=== PATIENT | female | born 1990 | race American Indian/Alaskan Native ===

== ENCOUNTER 2018-06-01 15:46 | Emergency (ER) | payer MEDICAID ==
[2018-06-01 16:13] VITALS: BP 166/80
--- NOTE | 2018-06-01 17:10 | Emergency Department Report ---
Chief Complaint: Abdominal Pain Stated Complaint: STOMACH AND SIDE PAIN Time Seen by Provider: 06/01/18 17:05 - HPI History of Present Illness: 28-year-old female presents to the emergency Department with complaints of abdominal pain is worst in the left side of the abdomen but sometimes radiates towards the epigastric or right upper quadrant region. It is been going on for about 4 days and at first she had some associated nausea and vomiting. She is not taking anything for her symptoms represent dig. She denies any past medical history. - ROS Review of Systems: Positive for abdominal pain Negative for fever, constipation, diarrhea - Exam Vital Signs: Vital Signs 06/01/18 16:09 Temperature 98.4 F Pulse Rate 85 Respiratory 16 Rate Blood Pressure 166/80 O2 Sat by Pulse 100 Oximetry Physical Exam: There is some reproducible left-sided abdominal tenderness to palpation. No guarding. Heart and lungs sounds are normal to auscultation. MSE screening note: Focused history and physical exam performed. Due to findings the following was ordered: I have ordered a CBC, CMP, urinalysis, test and lipase. She will have a 2 view abdominal x-ray ED Disposition for MSE Condition: Stable Instructions: Abdominal Pain (ED)
[2018-06-01 17:56] LABS: Bilirubin,Urine NEG (Negative); Blood,Urine SM (Negative); Color,Urine Yellow (Yellow); Mucus,Urine FEW /HPF; Protein,Urine <15 mg/dL mg/dL (Negative); Urobilinogen,Urine < 2.0 mg/dL (<2.0)
[2018-06-01 19:18] LABS: Hematocrit 41.6 % (30.3-42.9); Hemoglobin 13.5 gm/dl (10.1-14.3); Mean Corpuscular HGB Conc 33 % (30-34); Mean Corpuscular Hemoglobin 31 pg (28-32); Mean Corpuscular Volume 97 fl (79-97); Platelet Count 305 K/mm3 (140-440); Red Cell Distribution Width 13.6 % (13.2-15.2)
[2018-06-01 19:38] LABS: Alanine Aminotransferase 12 units/L (7-56); Albumin 4.2 g/dL (3.9-5); BUN/Creatinine Ratio 18; Blood Urea Nitrogen 11 mg/dL (7-17); Hemolysis Index 13; Lipase 25 units/L (13-60)
[2018-06-01 19:50] LABS: Eosinophils % (Manual) 0 % (0.0-4.3); Total Cells Counted 100
[2018-06-01 19:51] LABS: Large Platelets 1+; Platelet Estimate Consistent w Auto; RBC Morphology Normal
[2018-06-01] MEDS ORDERED: NACL 0.9% 1000 ML 1,000 ML IV ONE (21:12)
[2018-06-01] MEDS ORDERED: ZOFRAN IV ONE (21:14)
[2018-06-01] MEDS ORDERED: TORADOL IV ONE (21:14)
--- NOTE | 2018-06-01 21:48 | Emergency Department Report ---
ED Abdominal Pain HPI - General Chief Complaint: Abdominal Pain Stated Complaint: STOMACH AND SIDE PAIN Time Seen by Provider: 06/01/18 17:05 Source: patient Mode of arrival: Ambulatory Limitations: No Limitations - History of Present Illness Initial Comments: This is a 28-year-old female nontoxic, well nourished in appearance, no acute signs of distress presents to the ED with c/o of nausea and vomiting and abdominal pain 4 days. Patient describes vomiting as food content and yellow gastric acid. Patient describes abdominal pain as cramping and aching with level of 3/10 in the left and right abdominal areas. Patient denies chest pain , short of breath, fever, chills, headache, stiff neck, numbness or tingling. Patient denies any diarrhea or constipation. Patient denies any vaginal bleeding or discharge. Patient denies any recent travels. Patient stated allergies to PCN. Patient stated PMH includes arthritis and hypertension. MD Complaint: abdominal pain -: days(s) (4) Location: LUQ, RUQ Radiation: none Migration to: no migration Severity: mild Severity scale (0 -10): 3 Quality: cramping, aching Consistency: constant Improves With: nothing Worsens With: nothing Associated Symptoms: nausea, vomiting. denies: diarrhea, fever, chills, constipation, dysuria, hematemesis, hematochezia, melena, hematuria, anorexia, syncope - Related Data LMP Date: 05/08/18 Previous Rx's Medication Instructions Recorded Last Taken Type Gentamicin 0.3% Ophth Soln 2 drops OD QID #5 ml 07/25/14 Unknown Rx HYDROcodone/APAP 5-325 [[place] 1 each PO Q6HR PRN #14 tablet 07/25/14 Unknown Rx 5/325] Homatropine HBr [Isopto 2 drop OD TID #3 day 07/25/14 Unknown Rx Homatropine 5% eye drop] Vits96/Iron Fum/Folic 1 each PO QDAY #30 tablet 09/05/14 Unknown Rx [ Tablet] Promethazine [Phenergan] 25 mg PO Q6H PRN #20 tablet 09/05/14 Unknown Rx Ibuprofen [Motrin] 600 mg PO Q8H PRN #30 tablet 06/01/18 Unknown Rx Ondansetron [Zofran Odt] 4 mg PO Q8HR PRN #20 tab.rapdis 06/01/18 Unknown Rx Allergies Allergy/AdvReac Type Severity Reaction Status Date / Time No Known Allergies Allergy Unverified 07/24/14 22:29 ED Review of Systems ROS: Stated complaint: STOMACH AND SIDE PAIN Other details as noted in HPI Constitutional: denies: chills, fever Eyes: denies: eye pain, eye discharge, vision change ENT: denies: ear pain, throat pain Respiratory: denies: cough, shortness of breath, wheezing Cardiovascular: denies: chest pain, palpitations Endocrine: no symptoms reported Gastrointestinal: abdominal pain, nausea, vomiting. denies: diarrhea Genitourinary: denies: urgency, dysuria, discharge Musculoskeletal: denies: back pain, joint swelling, arthralgia Skin: denies: rash, lesions Neurological: denies: headache, weakness, paresthesias Psychiatric: denies: anxiety, depression Hematological/Lymphatic: denies: easy bleeding, easy bruising ED Past Medical Hx - Past Medical History Previous Medical History?: No - Surgical History Past Surgical History?: Yes Additional Surgical History: X 2 - Social History Smoking Status: Never Smoker Substance Use Type: Alcohol - Medications Home Medications: Home Medications Medication Instructions Recorded Confirmed Last Taken Type Gentamicin 0.3% Ophth Soln 2 drops OD QID #5 ml 07/25/14 Unknown Rx HYDROcodone/APAP 5-325 [[place] 1 each PO Q6HR PRN #14 tablet 07/25/14 Unknown Rx 5/325] Homatropine HBr [Isopto 2 drop OD TID #3 day 07/25/14 Unknown Rx Homatropine 5% eye drop] Vits96/Iron Fum/Folic 1 each PO QDAY #30 tablet 09/05/14 Unknown Rx [ Tablet] Promethazine [Phenergan] 25 mg PO Q6H PRN #20 tablet 09/05/14 Unknown Rx Ibuprofen [Motrin] 600 mg PO Q8H PRN #30 tablet 06/01/18 Unknown Rx Ondansetron [Zofran Odt] 4 mg PO Q8HR PRN #20 tab.rapdis 06/01/18 Unknown Rx ED Physical Exam - General Limitations: No Limitations General appearance: alert, in no apparent distress - Head Head exam: Present: atraumatic, normocephalic - Eye Eye exam: Present: normal appearance Pupils: Present: normal accommodation - ENT ENT exam: Present: normal exam, mucous membranes moist - Neck Neck exam: Present: normal inspection, full ROM. Absent: tenderness, meningismus, lymphadenopathy - Respiratory Respiratory exam: Present: normal lung sounds bilaterally. Absent: respiratory distress, wheezes, rales, rhonchi, stridor, chest wall tenderness, accessory muscle use, decreased breath sounds, prolonged expiratory - Cardiovascular Cardiovascular Exam: Present: regular rate, normal rhythm, normal heart sounds. Absent: bradycardia, tachycardia, irregular rhythm, systolic murmur, diastolic murmur, rubs, gallop - GI/Abdominal GI/Abdominal exam: Present: soft, tenderness (RUQ and LUQ), normal bowel sounds. Absent: distended, guarding, rebound, rigid, diminished bowel sounds - Expanded GI/Abdominal Exam Expanded GI/Abdominal exam: Absent: psoas sign, obturator sign, heel tap sign, Patterson's sign, Rovsing's sign, tenderness at [place]'s Point, ascites - Rectal Rectal exam: Present: deferred - Extremities Exam Extremities exam: Present: normal inspection, full ROM, normal capillary refill. Absent: tenderness - Back Exam Back exam: Present: normal inspection, full ROM. Absent: tenderness, CVA tenderness (R), CVA tenderness (L), muscle spasm, paraspinal tenderness, vertebral tenderness, rash noted - Neurological Exam Neurological exam: Present: alert, oriented X3, normal gait - Psychiatric Psychiatric exam: Present: normal affect, normal mood - Skin Skin exam: Present: warm, dry, intact, normal color. Absent: rash ED Course Vital Signs 06/01/18 16:09 Temperature 98.4 F Pulse Rate 85 Respiratory 16 Rate Blood Pressure 166/80 O2 Sat by Pulse 100 Oximetry - Reevaluation(s) Reevaluation #1: 06/01/18 21:46 Patient is speaking in full sentences with no signs of distress noted. - Consultations Consultation #1: 06/01/18 21:46 Patient has been consulted with Dr. Tan about patient history, physical exam, and labs and examined and screened patient and agrees to ED plan of care. CT scan pending. ED Medical Decision Making - Lab Data Result diagrams: 06/01/18 19:03 06/01/18 19:03 - Medical Decision Making This is a 28-year-old female that presents with abdominal pain. Patient is stable and was examined by me and Dr. Tan. There is slight abdominal tenderness. Negative signs of symptoms of appendicitis. Labs obtained. UA obtained. Xray and CT with contrast of abdomen obtained and dictated by the radiologist. Patient is notified of the report with no questions noted by the patient. Vital signs are stable prior to discharge. Patient received Toradol and Zofran IV and 1L of normal saline in the ED which patient stated symptoms has resolved and subsided. A by mouth challenge has been obtained and patient tolerated well with no nausea vomiting. Patient was notified of strict precautions of appendicitis symptoms and to return to the ED if symptoms occurs as soon as possible. Patient was also instructed to Follow-up with a primary care doctor in 3-5 days or if symptoms worsen and continue return to emergency room as soon as possible. At time of discharge, the patient does not seem toxic or ill in appearance. No acute signs of distress noted. Patient agrees to discharge treatment plan of care. No further questions noted by the patient. Critical care attestation.: If time is entered above; I have spent that time in minutes in the direct care of this critically ill patient, excluding procedure time. ED Disposition Clinical Impression: Nausea & vomiting Qualifiers: Vomiting type: unspecified Vomiting Intractability: non-intractable Qualified Code(s): R11.2 - Nausea with vomiting, unspecified Abdominal pain Qualifiers: Abdominal location: upper abdomen, unspecified Qualified Code(s): R10.10 - Upper abdominal pain, unspecified Disposition: DC-01 TO HOME OR SELFCARE Is pt being admited?: No Does the pt Need Aspirin: No Condition: Stable Instructions: Abdominal Pain (ED), Acute Nausea and Vomiting (ED) Additional Instructions: Follow-up with a primary care doctor in 3-5 days or if symptoms worsen and continue return to emergency room as soon as possible. Prescriptions: Ibuprofen [Motrin] 600 mg PO Q8H PRN #30 tablet PRN Reason: Pain Ondansetron [Zofran Odt] 4 mg PO Q8HR PRN #20 tab.rapdis PRN Reason: Nausea Referrals: AL CAMARILLO MD [Primary Care Provider] - 3-5 Days PRIMARY CARE, [Referring] - 3-5 Days KAVIN JOLLY MD [Staff Physician] - 3-5 Days [facility] [Outside] - 3-5 Days [facility] [Outside] - 3-5 Days Forms: Work/School Release Form(ED)
--- NOTE | 2018-06-01 22:48 | Cat Scan Report ---
FINAL REPORT EXAM: CT ABDOMEN PELVIS W CON HISTORY: abd pain TECHNIQUE: CT abdomen and pelvis with intravenous contrast PRIORS: None. FINDINGS: No acute abnormality identified in the lung bases. No focal abnormality identified within the liver parenchyma. The spleen demonstrates normal size and attenuation. No pancreatic abnormalities seen. The kidneys demonstrate symmetric contrast enhancement. No evidence of hydronephrosis. The adrenal glands are unremarkable Abdominal aorta is normal in caliber. No pathologically enlarged lymph nodes are identified. No signs of free fluid or free air No evidence of small bowel dilatation. Colon is nondistended. No pericolonic inflammatory change. Noted is an IUD centrally within the uterus. Urinary bladder is unremarkable. IMPRESSION: Negative. No acute abnormalities seen
--- NOTE | 2018-06-02 16:23 | XRay Report ---
FINAL REPORT EXAM: XR ABDOMEN 2V HISTORY: Abd pain TECHNIQUE: Frontal views of the abdomen and pelvis in the supine and upright positions Comparison: None FINDINGS: The bowel gas pattern is nonspecific with air in mildly distended loops of small bowel and colon with some air-fluid levels on the upright view. There is no evidence of pneumoperitoneum nor organomegaly. An intrauterine device is projected in the region of the uterus. The bony structures are notable for mild dextrocurvature of the lumbar spine on the upright view. The cardiac silhouette appears to be enlarged. This may be exaggerated by technique. IMPRESSION: 1. Nonspecific bowel gas pattern with air-fluid levels on the upright view. If there is a clinical suspicion of an acute intra-abdominal process, CT abdomen and pelvis may be helpful. 2. Dextrocurvature lumbar spine on the upright view. 3. The cardiac silhouette appears to be enlarged. This may be exaggerated by technique.
== END 2018-06-01 23:57 | disposition home or self-care (01) ==
LOC: ED 15:46
DX: R10.11 Right upper quadrant pain (principal); R10.12 Left upper quadrant pain; R11.2 Nausea with vomiting, unspecified
CPT/HCPCS: 36415; 74019; 74177; 80053; 81001; 83690; 84703; 85007; 85025; 96361; 96365; 96375; 99284; J1885; J2405; J7030; Q9967; 96374

== ENCOUNTER 2018-08-05 23:57 | Emergency (ER) | payer MEDICAID ==
[2018-08-06 00:38] VITALS: BP 130/82
--- NOTE | 2018-08-06 03:33 | Emergency Department Report ---
- General Chief complaint: Skin Rash Stated complaint: SPIDER BITE Time Seen by Provider: 08/06/18 03:28 Source: patient Mode of arrival: Ambulatory Limitations: No Limitations - History of Present Illness Initial comments: 28-year-old [place] female comes to the emergency room reporting several red spots in the left arm and left lower extremity. Patient states that there are spider bites but did not see any spiders. Patient reports that the bumps itch and burn at the same time. Patient has been taking Benadryl. complaint: insect bite/sting -: This morning Location: LUE, LLE Quality: burning, other Consistency: constant (pleuritic) Improves with: none Worsens with: none Associated symptoms: denies other symptoms Treatments Prior to Arrival: none - Related Data Previous Rx's Medication Instructions Recorded Last Taken Type Gentamicin 0.3% Ophth Soln 2 drops OD QID #5 ml 07/25/14 Unknown Rx HYDROcodone/APAP 5-325 [[place] 1 each PO Q6HR PRN #14 tablet 07/25/14 Unknown Rx 5/325] Homatropine HBr [Isopto 2 drop OD TID #3 day 07/25/14 Unknown Rx Homatropine 5% eye drop] Vits96/Iron Fum/Folic 1 each PO QDAY #30 tablet 09/05/14 Unknown Rx [ Tablet] Promethazine [Phenergan] 25 mg PO Q6H PRN #20 tablet 09/05/14 Unknown Rx Ibuprofen [Motrin] 600 mg PO Q8H PRN #30 tablet 06/01/18 Unknown Rx Ondansetron [Zofran Odt] 4 mg PO Q8HR PRN #20 tab.rapdis 06/01/18 Unknown Rx Triamcinolone 0.1% [Kenalog 0.1% 1 applic TP TID #1 tube 08/06/18 Unknown Rx CREAM] Allergies Allergy/AdvReac Type Severity Reaction Status Date / Time No Known Allergies Allergy Unverified 07/24/14 22:29 Abscess Boil HPI - HPI Chief Complaint: Skin Rash Stated Complaint: SPIDER BITE Time Seen by Provider: 08/06/18 03:28 Home Medications: Previous Rx's Medication Instructions Recorded Last Taken Type Gentamicin 0.3% Ophth Soln 2 drops OD QID #5 ml 07/25/14 Unknown Rx HYDROcodone/APAP 5-325 [[place] 1 each PO Q6HR PRN #14 tablet 07/25/14 Unknown Rx 5/325] Homatropine HBr [Isopto 2 drop OD TID #3 day 07/25/14 Unknown Rx Homatropine 5% eye drop] Vits96/Iron Fum/Folic 1 each PO QDAY #30 tablet 09/05/14 Unknown Rx [ Tablet] Promethazine [Phenergan] 25 mg PO Q6H PRN #20 tablet 09/05/14 Unknown Rx Ibuprofen [Motrin] 600 mg PO Q8H PRN #30 tablet 06/01/18 Unknown Rx Ondansetron [Zofran Odt] 4 mg PO Q8HR PRN #20 tab.rapdis 06/01/18 Unknown Rx Triamcinolone 0.1% [Kenalog 0.1% 1 applic TP TID #1 tube 08/06/18 Unknown Rx CREAM] Allergies/Adverse Reactions: Allergies Allergy/AdvReac Type Severity Reaction Status Date / Time No Known Allergies Allergy Unverified 07/24/14 22:29 ED Review of Systems ROS: Stated complaint: SPIDER BITE Other details as noted in HPI Comment: All other systems reviewed and negative ED Past Medical Hx - Past Medical History Previous Medical History?: No - Surgical History Past Surgical History?: Yes Additional Surgical History: X 2 - Social History Smoking Status: Current Every Day Smoker Substance Use Type: Alcohol - Medications Home Medications: Home Medications Medication Instructions Recorded Confirmed Last Taken Type Gentamicin 0.3% Ophth Soln 2 drops OD QID #5 ml 07/25/14 Unknown Rx HYDROcodone/APAP 5-325 [[place] 1 each PO Q6HR PRN #14 tablet 07/25/14 Unknown Rx 5/325] Homatropine HBr [Isopto 2 drop OD TID #3 day 07/25/14 Unknown Rx Homatropine 5% eye drop] Vits96/Iron Fum/Folic 1 each PO QDAY #30 tablet 09/05/14 Unknown Rx [ Tablet] Promethazine [Phenergan] 25 mg PO Q6H PRN #20 tablet 09/05/14 Unknown Rx Ibuprofen [Motrin] 600 mg PO Q8H PRN #30 tablet 06/01/18 Unknown Rx Ondansetron [Zofran Odt] 4 mg PO Q8HR PRN #20 tab.rapdis 06/01/18 Unknown Rx Triamcinolone 0.1% [Kenalog 0.1% 1 applic TP TID #1 tube 08/06/18 Unknown Rx CREAM] ED Physical Exam - General Limitations: No Limitations General appearance: alert, in no apparent distress - Eye Eye exam: Present: EOMI - ENT ENT exam: Present: mucous membranes moist - Neurological Exam Neurological exam: Present: alert, oriented X3 - Psychiatric Psychiatric exam: Present: normal affect, normal mood - Expanded Skin Exam Expanded Type of lesion: Present: bite/sting Distribution of rash: LUE, LLE Description of rash: Present: size (time size) ED Course Vital Signs 08/06/18 00:26 Temperature 98.6 F Pulse Rate 94 H Respiratory 14 Rate Blood Pressure 130/82 O2 Sat by Pulse 100 Oximetry ED Medical Decision Making - Medical Decision Making Patient has been evaluated by this provider fast track. Patient appears to have some type of insect bite Disposition proximal cream and encouraged to continue with the Benadryl as needed Critical care attestation.: If time is entered above; I have spent that time in minutes in the direct care of this critically ill patient, excluding procedure time. ED Disposition Clinical Impression: Insect bite Qualifiers: Encounter type: initial encounter Qualified Code(s): W57.XXXA - Bitten or stung by nonvenomous insect and other nonvenomous arthropods, initial encounter Disposition: DC-01 TO HOME OR SELFCARE Is pt being admited?: No Does the pt Need Aspirin: No Condition: Stable Instructions: Insect Bite or Sting (ED) Additional Instructions: Please continue with Benadryl and apply topical cream steroid to the red lesions. Prescriptions: Triamcinolone 0.1% [Kenalog 0.1% CREAM] 1 applic TP TID #1 tube Referrals: PRIMARY CARE, [Primary Care Provider] - 3-5 Days Forms: Work/School Release Form(ED)
== END 2018-08-06 03:40 | disposition home or self-care (01) ==
LOC: ED 23:57
DX: S40.862A Insect bite (nonvenomous) of left upper arm, initial encounter (principal); S80.862A Insect bite (nonvenomous), left lower leg, initial encounter; F17.200 Nicotine dependence, unspecified, uncomplicated; W57.XXXA Bitten or stung by nonvenomous insect and other nonvenomous arthropods, initial encounter; Y93.89 Activity, other specified; Y92.89 Other specified places as the place of occurrence of the external cause; Y99.8 Other external cause status
CPT/HCPCS: 99282

== ENCOUNTER 2019-12-24 21:53 | Emergency (ER) | payer MEDICAID ==
[2019-12-24 23:30] VITALS: BP 158/100
[2019-12-25 00:11] LABS: HCG Qualitative,Urine Negative (Negative)
--- NOTE | 2019-12-25 00:33 | Cat Scan Report ---
CT head/brain wo con INDICATION / CLINICAL INFORMATION: 29 years Female; neck pain and headache. TECHNIQUE: Routine CT head without contrast. All CT scans at this location are performed using CT dos e reduction for ALARA by means of automated exposure control. COMPARISON: None. FINDINGS: BRAIN / INTRACRANIAL CONTENTS: No acute hemorrhage, mass effect, midline shift, hydrocephalus, or acu te, large territorial infarct. No chronic infarct or atrophy appreciated. No significant white matter abnormality. CRANIOCERVICAL JUNCTION: No significant abnormality. ORBITS: No significant abnormality of visualized orbits. SINUSES / MASTOIDS: Mucosal thickening suggested in the right maxillary region. ADDITIONAL FINDINGS: None. IMPRESSION: 1. No focal mass, hemorrhage, hydrocephalus, or acute, large territorial infarct. Signer Name: Florentin Johnson MD, III Signed: 12/25/2019 12:29 AM Workstation Name: [id number]
--- NOTE | 2019-12-25 00:46 | Cat Scan Report ---
CT cervical spine wo con INDICATION: neck pain and headache. TECHNIQUE: All CT scans at this location are performed using the following dose modulation technique: Automated exposure control. Helical slices were obtained through the cervical spine. Coronal and sagittal refor matted images were obtained. COMPARISON: None available. FINDINGS: Cervical spine is in normal alignment. Disc space heights are maintained. No fracture or subluxation is seen. Prevertebral soft tissues are unremarkable. No definite disc bulge or protrusion is seen. No focal lytic or sclerotic lesions are seen. IMPRESSION: 1. Cervical spine is in normal alignment. Disc space heights are maintained. No fracture is seen. Signer Name: Fabio Hogan MD Signed: 12/25/2019 12:42 AM Workstation Name: [id number]
[2019-12-25] MEDS ORDERED: IBUPROFEN 600 MG TAB PO ONE (01:35)
--- NOTE | 2019-12-25 01:39 | Emergency Department Report ---
ED Neck Pain/Injury HPI - General Chief Complaint: Neck Pain/Injury Stated Complaint: BACK/NECK PAIN Time Seen by Provider: 12/25/19 01:34 Mode of arrival: Ambulatory Limitations: No Limitations - History of Present Illness Initial Comments: 29-year-old -[place] female presents to the emergency room for upper back and neck pain for several days. Patient reports it hurts to turn her neck. Patient states she is noticed some swelling to the back of her neck with tenderness. Patient states after having the pain she had fallen today. Patient is taken nothing for her pain. Patient is noted to have elevated blood pressure and reports she has hypertension. Patient ports she does not take her amlodipine as she does not like the way it makes her feel. MD Complaint: neck pain, upper back pain Onset/Timin -: week(s) Radiation: upper back Severity: severe Severity scale (0 -10): 7 Quality: dull, aching Consistency: constant Improves With: none Worsens With: movement of neck Context: fall Associated Symptoms: none - Related Data Previous Rx's Medication Instructions Recorded Last Taken Type Gentamicin 0.3% Ophth Soln 2 drops OD QID #5 ml 07/25/14 Unknown Rx HYDROcodone/APAP 5-325 [[place] 1 each PO Q6HR PRN #14 tablet 07/25/14 Unknown Rx 5/325] Homatropine HBr [Isopto 2 drop OD TID #3 day 07/25/14 Unknown Rx Homatropine 5% eye drop] Vits96/Iron Fum/Folic 1 each PO QDAY #30 tablet 09/05/14 Unknown Rx [ Tablet] Promethazine [Phenergan] 25 mg PO Q6H PRN #20 tablet 09/05/14 Unknown Rx Ondansetron [Zofran Odt] 4 mg PO Q8HR PRN #20 tab.rapdis 06/01/18 Unknown Rx Triamcinolone 0.1% [Kenalog 0.1% 1 applic TP TID #1 tube 08/06/18 Unknown Rx CREAM] Ibuprofen [Motrin 600 MG tab] 600 mg PO Q8H PRN #30 tablet 12/25/19 Unknown Rx Allergies Allergy/AdvReac Type Severity Reaction Status Date / Time No Known Allergies Allergy Verified 12/24/19 22:05 ED Review of Systems ROS: Stated complaint: BACK/NECK PAIN Other details as noted in HPI Comment: All other systems reviewed and negative ED Past Medical Hx - Past Medical History Previous Medical History?: Yes Hx Hypertension: Yes - Surgical History Past Surgical History?: Yes Additional Surgical History: X 2 - Social History Smoking Status: Current Every Day Smoker Substance Use Type: None - Medications Home Medications: Home Medications Medication Instructions Recorded Confirmed Last Taken Type Gentamicin 0.3% Ophth Soln 2 drops OD QID #5 ml 07/25/14 Unknown Rx HYDROcodone/APAP 5-325 [[place] 1 each PO Q6HR PRN #14 tablet 07/25/14 Unknown Rx 5/325] Homatropine HBr [Isopto 2 drop OD TID #3 day 07/25/14 Unknown Rx Homatropine 5% eye drop] Vits96/Iron Fum/Folic 1 each PO QDAY #30 tablet 09/05/14 Unknown Rx [ Tablet] Promethazine [Phenergan] 25 mg PO Q6H PRN #20 tablet 09/05/14 Unknown Rx Ondansetron [Zofran Odt] 4 mg PO Q8HR PRN #20 tab.rapdis 06/01/18 Unknown Rx Triamcinolone 0.1% [Kenalog 0.1% 1 applic TP TID #1 tube 08/06/18 Unknown Rx CREAM] Ibuprofen [Motrin 600 MG tab] 600 mg PO Q8H PRN #30 tablet 12/25/19 Unknown Rx ED Physical Exam - General Limitations: No Limitations General appearance: alert, in distress - Head Head exam: Present: atraumatic, normocephalic - Eye Eye exam: Present: normal appearance - ENT ENT exam: Present: mucous membranes moist - Neck Neck exam: Present: tenderness, full ROM - Neurological Exam Neurological exam: Present: alert, oriented X3 - Expanded Neurological Exam Expanded Cranial nerves: EOM's Intact: Normal, Gag Reflex: Normal, Tongue Deviation: Normal, Nystagmus: Normal, Facial Sensation: Normal, Facial Palsy with Forehead Movement: Normal, Facial Palsy without Forehead Movement: Normal Cerebellar function: Finger to Nose: Normal, Heel to Thompson: Normal, Romberg: Normal Upper motor neuron: Adam Neglect: Normal, Pronator Drift: Normal, Sensory Extinction: Normal Sensory exam: Upper Extremity Light Touch: Normal, Upper Extremity Pin Prick: Normal, Upper Extremity Temperature: Normal, UE 2 Point Discrimination: Normal, Lower Extremity Light Touch: Normal, Lower Extremity Pin Prick: Normal, Lower Extremity Temperature: Normal, LE 2 Point Discrimination: Normal Motor strength exam: RUE: 4, LUE: 4, RLE: 4, LLE: 4 Best Eye Response (Maki): (4) open spontaneously Best Motor Response ([place]): (6) obeys commands Best Verbal Response (Maki): (5) oriented Maki Total: 15 - Psychiatric Psychiatric exam: Present: normal affect, normal mood - Skin Skin exam: Present: warm, dry, intact, normal color. Absent: rash ED Course Vital Signs 12/24/19 22:03 Temperature 99.1 F Pulse Rate 91 H Respiratory 18 Rate Blood Pressure 158/100 O2 Sat by Pulse 100 Oximetry ED Medical Decision Making - Radiology Data Radiology results: report reviewed Patient: LOVE CASTILLO MR#: [id number] : 1990 Acct:[id number] Age/Sex: 29 / F ADM Date: 12/24/19 Loc: ED Attending Dr: Ordering Physician: JEET ROBERTSON MD Date of Service: 12/24/19 Procedure(s): CT head/brain wo con Accession Number(s): [id number] cc: JEET ROBERTSON MD CT head/brain wo con INDICATION / CLINICAL INFORMATION: 29 years Female; neck pain and headache. TECHNIQUE: Routine CT head without contrast. All CT scans at this location are performed using CT dose reduction for ALARA by means of automated exposure control. COMPARISON: None. FINDINGS: BRAIN / INTRACRANIAL CONTENTS: No acute hemorrhage, mass effect, midline shift, hydrocephalus, or acute, large territorial infarct. No chronic infarct or atrophy appreciated. No significant white matter abnormality. CRANIOCERVICAL JUNCTION: No significant abnormality. ORBITS: No significant abnormality of visualized orbits. SINUSES / MASTOIDS: Mucosal thickening suggested in the right maxillary region. ADDITIONAL FINDINGS: None. IMPRESSION: 1. No focal mass, hemorrhage, hydrocephalus, or acute, large territorial infarct. Signer Name: Florentin Johnson MD, III Signed: 12/25/2019 12:29 AM Workstation Name: [id number] Transcribed By: HR Dictated By: Florentin Johnson MD Electronically Authenticated By: Florentin Johnson MD Signed Date/Time: 12/25/19 0029 Patient: LOVE CASTILLO MR#: [id number] : 1990 Acct:[id number] Age/Sex: 29 / F ADM Date: 12/24/19 Loc: ED Attending Dr: Ordering Physician: JEET ROBERTSON MD Date of Service: 12/24/19 Procedure(s): CT cervical spine wo con Accession Number(s): [id number] cc: JEET ROBERTSON MD CT cervical spine wo con INDICATION: neck pain and headache. TECHNIQUE: All CT scans at this location are performed using the following dose modulation technique: Automated exposure control. Helical slices were obtained through the cervical spine. Coronal and sagittal reformatted images were obtained. COMPARISON: None available. FINDINGS: Cervical spine is in normal alignment. Disc space heights are maintained. No fracture or subluxation is seen. Prevertebral soft tissues are unremarkable. No definite disc bulge or protrusion is seen. No focal lytic or sclerotic lesions are seen. IMPRESSION: 1. Cervical spine is in normal alignment. Disc space heights are maintained. No fracture is seen. Signer Name: Fabio Hogan MD Signed: 12/25/2019 12:42 AM Workstation Name: [id number] Transcribed By: SS Dictated By: Fabio Hogan MD Electronically Authenticated By: Fabio Hogan MD Signed Date/Time: 12/25/19 0042 - Medical Decision Making 29-year-old -[place] female presents to the emergency room for upper back and neck pain for several days. Patient reports it hurts to turn her neck. Patient states she is noticed some swelling to the back of her neck with tenderness. Patient states after having the pain she had fallen today. Patient is taken nothing for her pain. Patient is noted to have elevated blood pressure and reports she has hypertension. Patient ports she does not take her amlodipine as she does not like the way it makes her feel. CT scan of head neck are negative for any acute findings. Discussed with patient she needs to take ibuprofen use warm heat. She needs to take her blood pressure medicine talked to patient regarding her elevated blood pressure and that this could lead to a stroke or . Critical care attestation.: If time is entered above; I have spent that time in minutes in the direct care of this critically ill patient, excluding procedure time. ED Disposition Clinical Impression: Acute cervical myofascial strain Disposition: DC-01 TO HOME OR SELFCARE Is pt being admited?: No Does the pt Need Aspirin: No Condition: Stable Instructions: Muscle Strain (ED) Additional Instructions: CT scans are negative for any acute findings or fractures or subluxations. Take ibuprofen every 6-8 hours as needed for pain. Use moist heat. It is very important for you to take your blood pressure medication as if you do not this can lead to a stroke heart attack or even . Please follow-up with your primary care provider. Prescriptions: Ibuprofen [Motrin 600 MG tab] 600 mg PO Q8H PRN #30 tablet PRN Reason: Pain Referrals: PRIMARY CARE, [Primary Care Provider] - 3-5 Days Forms: Accompanied Note
== END 2019-12-25 01:51 | disposition home or self-care (01) ==
LOC: ED 21:53
DX: S16.1XXA Strain of muscle, fascia and tendon at neck level, initial encounter (principal); M54.6 Pain in thoracic spine; I10 Essential (primary) hypertension; F17.200 Nicotine dependence, unspecified, uncomplicated; Z79.899 Other long term (current) drug therapy; W18.39XA Other fall on same level, initial encounter; Y93.89 Activity, other specified; Y92.89 Other specified places as the place of occurrence of the external cause; Y99.8 Other external cause status
CPT/HCPCS: 70450; 72125; 81025

== ENCOUNTER 2021-03-17 09:19 | Emergency (ER) | payer MEDICAID ==
[2021-03-17 09:49] VITALS: BP 159/103
--- NOTE | 2021-03-17 11:42 | Emergency Department Report ---
ED Extremity Problem HPI - General Chief complaint: Extremity Injury, Lower Stated complaint: RT KNEE PAIN Time Seen by Provider: 03/17/21 10:50 Source: patient Mode of arrival: Ambulatory Limitations: No Limitations - History of Present Illness Initial comments: 30-year-old obese -[place] female presents to the emergency room complaining of right knee pain that is gotten worse in the last 2 weeks. Patient states she has swelling to her right knee behind her knee and her calf is painful. Patient states she has recently traveled in November. She is currently on control and she smokes cigarettes. Patient states she has a history of hypertension and is currently on no medications. She denies any chest pain shortness of breath or any trauma. Patient states that she has a history of hypertension and has not been on a new medication. She states she has been trying to get in with her primary care provider but the office will not call her back. MD Complaint: extremity pain, extremity swelling, joint swelling Location: right, lower extremity, elbow History of Same: No -: Yes myalgia Severity scale (0 -10): 8 Quality: aching, dull Consistency: constant Worsens with: weight bearing, walking, palpation Associated Symptoms: denies other symptoms - Related Data Previous Rx's Medication Instructions Recorded Last Taken Type Gentamicin 0.3% Ophth Soln 2 drops OD QID #5 ml 07/25/14 Unknown Rx HYDROcodone/APAP 5-325 [[place] 1 each PO Q6HR PRN #14 tablet 07/25/14 Unknown Rx 5/325] Homatropine HBr [Isopto 2 drop OD TID #3 day 07/25/14 Unknown Rx Homatropine 5% eye drop] Vits96/Iron Fum/Folic 1 each PO QDAY #30 tablet 09/05/14 Unknown Rx [ Tablet] Promethazine [Phenergan] 25 mg PO Q6H PRN #20 tablet 09/05/14 Unknown Rx Ondansetron [Zofran Odt] 4 mg PO Q8HR PRN #20 tab.rapdis 06/01/18 Unknown Rx Triamcinolone 0.1% [Kenalog 0.1% 1 applic TP TID #1 tube 08/06/18 Unknown Rx CREAM] Ibuprofen [Motrin 600 MG tab] 600 mg PO Q8H PRN #30 tablet 12/25/19 Unknown Rx Naproxen 500 mg PO BID PRN #20 tablet 03/17/21 Unknown Rx Allergies Allergy/AdvReac Type Severity Reaction Status Date / Time No Known Allergies Allergy Verified 12/24/19 22:05 ED Review of Systems ROS: Stated complaint: RT KNEE PAIN Other details as noted in HPI Comment: All other systems reviewed and negative ED Past Medical Hx - Past Medical History Previous Medical History?: Yes Hx Hypertension: Yes - Surgical History Past Surgical History?: Yes Additional Surgical History: X 2 - Social History Smoking Status: Current Every Day Smoker Substance Use Type: None - Medications Home Medications: Home Medications Medication Instructions Recorded Confirmed Last Taken Type Gentamicin 0.3% Ophth Soln 2 drops OD QID #5 ml 07/25/14 Unknown Rx HYDROcodone/APAP 5-325 [[place] 1 each PO Q6HR PRN #14 tablet 07/25/14 Unknown Rx 5/325] Homatropine HBr [Isopto 2 drop OD TID #3 day 07/25/14 Unknown Rx Homatropine 5% eye drop] Vits96/Iron Fum/Folic 1 each PO QDAY #30 tablet 09/05/14 Unknown Rx [ Tablet] Promethazine [Phenergan] 25 mg PO Q6H PRN #20 tablet 09/05/14 Unknown Rx Ondansetron [Zofran Odt] 4 mg PO Q8HR PRN #20 tab.rapdis 06/01/18 Unknown Rx Triamcinolone 0.1% [Kenalog 0.1% 1 applic TP TID #1 tube 08/06/18 Unknown Rx CREAM] Ibuprofen [Motrin 600 MG tab] 600 mg PO Q8H PRN #30 tablet 12/25/19 Unknown Rx Naproxen 500 mg PO BID PRN #20 tablet 03/17/21 Unknown Rx ED Physical Exam - General Limitations: No Limitations General appearance: alert, in no apparent distress - Head Head exam: Present: atraumatic, normocephalic - Eye Eye exam: Present: normal appearance - ENT ENT exam: Present: normal external ear exam - Neck Neck exam: Present: normal inspection, full ROM - Respiratory Respiratory exam: Absent: chest wall tenderness, accessory muscle use - Cardiovascular Cardiovascular Exam: Present: regular rate - Expanded Lower Extremity Exam Right Knee exam: Present: full ROM, tenderness, swelling, effusion Lower Leg exam: Present: tenderness, swelling, Gail's sign. Absent: crepidus, dislocation, erythema Ankle exam: Present: normal inspection, full ROM. Absent: tenderness, swelling Foot/Toe exam: Present: normal inspection, full ROM Neuro vascular tendon exam: Present: no vascular compromise Gait: Positive: observed and limited by pain - Back Exam Back exam: Present: normal inspection, full ROM - Neurological Exam Neurological exam: Present: alert, oriented X3 - Psychiatric Psychiatric exam: Present: normal affect, normal mood - Skin Skin exam: Present: warm, dry, intact, normal color. Absent: rash ED Course Vital Signs 03/17/21 09:48 Temperature 98.8 F Pulse Rate 87 Respiratory 16 Rate Blood Pressure 159/103 [Right] O2 Sat by Pulse 98 Oximetry ED Medical Decision Making - Medical Decision Making 30-year-old obese -[place] female presents to the emergency room complaining of right knee pain that is gotten worse in the last 2 weeks. Patient states she has swelling to her right knee behind her knee and her calf is painful. Patient states she has recently traveled in November. She is currently on control and she smokes cigarettes. Patient states she has a history of hypertension and is currently on no medications. She denies any chest pain shortness of breath or any trauma. Patient states that she has a history of hypertension and has not been on a new medication. She states she has been trying to get in with her primary care provider but the office will not call her back. Venous Dopplers been ordered. Venous Doppler negative for DVT Recommend ibuprofen Tylenol and follow-up with an orthopedic provider. Critical care attestation.: If time is entered above; I have spent that time in minutes in the direct care of this critically ill patient, excluding procedure time. ED Disposition Clinical Impression: Pain of right knee and lower leg Disposition: DC-01 TO HOME OR SELFCARE Is pt being admited?: No Does the pt Need Aspirin: No Condition: Stable Instructions: Patellofemoral Pain Syndrome, Chronic Knee Pain, Adult Additional Instructions: Ultrasounds negative for DVT. Take Tylenol or ibuprofen and follow-up with an orthopedic provider. Prescriptions: Naproxen 500 mg PO BID PRN #20 tablet PRN Reason: Pain , Severe (7-10) Referrals: DONTAE STOLL MD [Primary Care Provider] - 3-5 Days JAMA CHAMPION MD [Staff Physician] - 3-5 Days KIANA ARROYO MD [Staff Physician] - 3-5 Days Forms: Work/School Release Form(ED)
--- NOTE | 2021-03-17 12:38 | Vascular Lab Report ---
DUPLEX DOPPLER LOWER EXTREMITY VEINS, RIGHT INDICATION: Right lower extremity swelling pain. TECHNIQUE: Duplex doppler imaging was performed through the veins of the right lower extremity using venous compression and other maneuvers. COMPARISON: No relevant prior imaging study available. FINDINGS: Right Common femoral vein: Negative. Right Superficial femoral vein: Negative. Right Popliteal vein: Negative. Right Calf veins: Negative. Additional findings: None. IMPRESSION: No sonographic evidence for DVT in the right lower extremity. Signer Name: Evan Lu Jr, MD Signed: 03/17/2021 12:34 PM Workstation Name: [id number]
== END 2021-03-17 13:41 | disposition home or self-care (01) ==
LOC: ED 09:19
DX: M25.561 Pain in right knee (principal); M79.89 Other specified soft tissue disorders; I10 Essential (primary) hypertension; F17.200 Nicotine dependence, unspecified, uncomplicated; Z98.890 Other specified postprocedural states; Z79.1 Long term (current) use of non-steroidal anti-inflammatories (NSAID); Z79.899 Other long term (current) drug therapy

== ENCOUNTER 2022-01-23 08:17 | Emergency (ER) | payer MEDICAID ==
[2022-01-23 08:42] VITALS: BP 152/102
[2022-01-23] MEDS ORDERED: KETOROLAC 10 MG TAB PO ONE (08:58)
[2022-01-23] MEDS ORDERED: CYCLOBENZAPRINE 10 MG TAB PO ONE (08:58)
[2022-01-23 10:40] LABS: Bilirubin,Urine NEG (Negative); Blood,Urine SM (Negative); Color,Urine Yellow (Yellow); Mucus,Urine FEW /HPF; Protein,Urine <15 mg/dL mg/dL (Negative); Urobilinogen,Urine < 2.0 mg/dL (<2.0)
[2022-01-23 10:49] LABS: HCG Qualitative,Urine Negative (Negative)
--- NOTE | 2022-01-23 11:00 | Emergency Department Report ---
ED Back Pain/Injury HPI - General Chief Complaint: Pain General Stated Complaint: PAIN/SIDE/BACK Time Seen by Provider: 01/23/22 08:50 Source: patient Limitations: No Limitations - History of Present Illness Initial Comments: 31-year-old black female with past medical history of hypertension presents to the emergency department for evaluation of 2-day history of left lower back pain. She denies injury and states that pain is worse with bending. She states that she has had some dysuria and intermittent abdominal pain. She denies fever, nausea, vomiting, and vaginal discharge. MD Complaint: back pain -: days(s) (2) Similar Symptoms Previously: No Place: home Radiation: none Severity: severe Severity scale (0 -10): 8 Quality: aching Consistency: constant Worsens With: movement Associated Symptoms: abdominal pain. denies: loss of appetite, nausea/vomiting, shortness of breath Treatments Prior to Arrival: NSAIDS, other medications (lidocaine patch) - Related Data Previous Rx's Medication Instructions Recorded Last Taken Type Gentamicin 0.3% Ophth Soln 2 drops OD QID #5 ml 07/25/14 Unknown Rx HYDROcodone/APAP 5-325 [[place] 1 each PO Q6HR PRN #14 tablet 07/25/14 Unknown Rx 5/325] Homatropine HBr [Isopto 2 drop OD TID #3 day 07/25/14 Unknown Rx Homatropine 5% eye drop] Vits96/Iron Fum/Folic 1 each PO QDAY #30 tablet 09/05/14 Unknown Rx [ Tablet] Promethazine [Phenergan] 25 mg PO Q6H PRN #20 tablet 09/05/14 Unknown Rx Ondansetron [Zofran Odt] 4 mg PO Q8HR PRN #20 tab.rapdis 06/01/18 Unknown Rx Triamcinolone 0.1% [Kenalog 0.1% 1 applic TP TID #1 tube 08/06/18 Unknown Rx CREAM] Ibuprofen [Motrin 600 MG tab] 600 mg PO Q8H PRN #30 tablet 12/25/19 Unknown Rx Naproxen 500 mg PO BID PRN #20 tablet 03/17/21 Unknown Rx Cyclobenzaprine [Flexeril] 10 mg PO TID PRN #21 tab 01/23/22 Unknown Rx Lidocaine [Lidoderm] 1 each TP DAILY #10 patch 01/23/22 Unknown Rx Naproxen [Naprosyn] 500 mg PO BID #14 tab 01/23/22 Unknown Rx Allergies Allergy/AdvReac Type Severity Reaction Status Date / Time No Known Allergies Allergy Verified 12/24/19 22:05 ED Review of Systems ROS: Stated complaint: PAIN/SIDE/BACK Other details as noted in HPI Comment: All other systems reviewed and negative Constitutional: denies: chills, fever, malaise, weakness Eyes: denies: eye pain, eye discharge ENT: denies: ear pain Respiratory: denies: cough, orthopnea, shortness of breath, SOB with exertion, SOB at rest Cardiovascular: denies: chest pain, palpitations, dyspnea on exertion, orthopnea, edema, syncope, paroxysmal nocturnal dyspnea Endocrine: denies: no symptoms reported Gastrointestinal: abdominal pain. denies: nausea, vomiting, diarrhea, hematemesis, melena, hematochezia Genitourinary: dysuria. denies: urgency, frequency, hematuria, discharge, abnormal menses, dyspareunia Musculoskeletal: back pain Skin: denies: rash, lesions Neurological: denies: headache, weakness Psychiatric: denies: anxiety, depression Hematological/Lymphatic: denies: easy bleeding, easy bruising ED Past Medical Hx - Past Medical History Hx Hypertension: Yes - Surgical History Additional Surgical History: X 2 - Social History Smoking Status: Current Every Day Smoker Substance Use Type: None - Medications Home Medications: Home Medications Medication Instructions Recorded Confirmed Last Taken Type Gentamicin 0.3% Ophth Soln 2 drops OD QID #5 ml 07/25/14 Unknown Rx HYDROcodone/APAP 5-325 [[place] 1 each PO Q6HR PRN #14 tablet 07/25/14 Unknown Rx 5/325] Homatropine HBr [Isopto 2 drop OD TID #3 day 07/25/14 Unknown Rx Homatropine 5% eye drop] Vits96/Iron Fum/Folic 1 each PO QDAY #30 tablet 09/05/14 Unknown Rx [ Tablet] Promethazine [Phenergan] 25 mg PO Q6H PRN #20 tablet 09/05/14 Unknown Rx Ondansetron [Zofran Odt] 4 mg PO Q8HR PRN #20 tab.rapdis 06/01/18 Unknown Rx Triamcinolone 0.1% [Kenalog 0.1% 1 applic TP TID #1 tube 08/06/18 Unknown Rx CREAM] Ibuprofen [Motrin 600 MG tab] 600 mg PO Q8H PRN #30 tablet 12/25/19 Unknown Rx Naproxen 500 mg PO BID PRN #20 tablet 03/17/21 Unknown Rx Cyclobenzaprine [Flexeril] 10 mg PO TID PRN #21 tab 01/23/22 Unknown Rx Lidocaine [Lidoderm] 1 each TP DAILY #10 patch 01/23/22 Unknown Rx Naproxen [Naprosyn] 500 mg PO BID #14 tab 01/23/22 Unknown Rx ED Physical Exam - General Limitations: No Limitations General appearance: alert, in no apparent distress - Head Head exam: Present: atraumatic, normocephalic - Eye Eye exam: Present: normal appearance. Absent: conjunctival injection - Neck Neck exam: Present: normal inspection, full ROM. Absent: tenderness, lymphadenopathy - Respiratory Respiratory exam: Present: normal lung sounds bilaterally. Absent: respiratory distress - Cardiovascular Cardiovascular Exam: Present: regular rate, normal heart sounds - GI/Abdominal GI/Abdominal exam: Present: soft, normal bowel sounds. Absent: distended, tenderness, guarding, rebound, rigid - Extremities Exam Extremities exam: Present: normal inspection - Back Exam Back exam: Present: normal inspection, full ROM, tenderness (bilateral lower and worse with movement. ). Absent: CVA tenderness (R), CVA tenderness (L), muscle spasm, paraspinal tenderness, vertebral tenderness - Neurological Exam Neurological exam: Present: alert, oriented X3, CN II-XII intact, normal gait, reflexes normal. Absent: motor sensory deficit - Psychiatric Psychiatric exam: Present: normal affect, normal mood - Skin Skin exam: Present: warm, dry, intact, normal color ED Course Vital Signs 01/23/22 08:40 Temperature 98.7 F Pulse Rate 86 Respiratory 17 Rate Blood Pressure 152/102 O2 Sat by Pulse 100 Oximetry - Reevaluation(s) Reevaluation #1: 01/23/22 10:45 Pain totally resolved after medications and patient states that she feels so much better. ED Medical Decision Making - Medical Decision Making 31-year-old black female with past medical history of hypertension presents to the emergency department for evaluation of 2-day history of left lower back pain. She denies injury and states that pain is worse with bending. She states that she has had some dysuria and intermittent abdominal pain. She denies fever, nausea, vomiting, and vaginal discharge. Back pain worse with movement and palpation, UA without uti, and pain totally resolved after medications. No abdominal pain and no tenderness on palpation, so low suspicion for acute abdomen. Patient will be treated for low back pain with nsaids and muscle relaxants. She is advised to take medications as prescribed and follow up with pcp for further evaluation and management. Critical care attestation.: If time is entered above; I have spent that time in minutes in the direct care of this critically ill patient, excluding procedure time. ED Disposition Clinical Impression: Back pain Qualifiers: Back pain location: low back pain Chronicity: acute Back pain laterality: left Sciatica presence: without sciatica Qualified Code(s): M54.50 - Low back pain, unspecified Disposition: HOME / SELF CARE / HOMELESS Is pt being admited?: No Does the pt Need Aspirin: No Condition: Stable Instructions: Acute Back Pain, Adult Additional Instructions: Take medications as prescribed. Follow-up with primary care provider if no improvement or worsening symptoms. Prescriptions: Cyclobenzaprine [Flexeril] 10 mg PO TID PRN #21 tab PRN Reason: Muscle Spasm Lidocaine [Lidoderm] 1 each TP DAILY #10 patch Naproxen [Naprosyn] 500 mg PO BID #14 tab Referrals: CHANTEL DELUCA MD [Referring] - 3-5 Days Forms: Work/School Release Form(ED) Time of Disposition: 10:59
== END 2022-01-23 13:20 | disposition home or self-care (01) ==
LOC: ED 08:17
DX: M54.50 Low back pain, unspecified (principal); I10 Essential (primary) hypertension; F17.200 Nicotine dependence, unspecified, uncomplicated
CPT/HCPCS: 81001; 81025; 99283

== ENCOUNTER 2022-04-28 19:40 | Emergency (ER) | payer MEDICAID ==
[2022-04-28 19:57] VITALS: BP 191/108
== END 2022-04-29 01:10 | disposition left against medical advice (07) ==
LOC: ED 19:40
DX: R68.84 Jaw pain (principal); K08.89 Other specified disorders of teeth and supporting structures; Z53.21 Procedure and treatment not carried out due to patient leaving prior to being seen by health care provider